=== PATIENT | male | born 1970 | race African-American/Black ===

== ENCOUNTER → 2016-11-10 | Outpatient (CLI) | payer OTHER ==
[~2016-11-10] MED LIST: ARMO1TAB PO; ASCO25TA PO; TYLE325T5 PO
--- NOTE | 2016-11-10 14:43 | REP ---
CT Head without contrast HISTORY: Headache COMPARISON: None There is no intraparenchymal hemorrhage, acute infarct, mass or midline shift. The ventricular system is normal in appearance. There is no extra cerebral collection. There is no fracture. The visualized sinuses are clear. IMPRESSION: There is no intracranial lesion. Signed by Paddy Sandoval MD 11/10/2016 01:34 P
== END ==
LOC: M RAD 13:19
PROVIDERS: ATTEND Psychiatry & Neurology Neurology
DX: R51 Headache (principal)

== ENCOUNTER → 2016-12-08 | Outpatient (CLI) | payer OTHER ==
--- NOTE | 2016-12-08 10:20 | REP ---
Right upper quadrant sonography: History: Fatty liver. Findings: Scanning through the right upper quadrant of the abdomen demonstrates a normal sized thin-walled gallbladder without evidence of stone or polyp. Common bile duct is normal measuring 0.5 cm. The liver is enlarged measuring 21.4 cm in craniocaudal length in the midclavicular line. There is increased echogenicity and decreased insonation consistent with diffuse fatty infiltration of the liver. A 1.1 x 1.3 x 1.3 cm hypoechoic area is seen in the right lobe which could be an area of fat sparing versus a focal mass lesion. This is most likely an area of fat sparing. Limited views of the pancreas show no abnormality. Pancreatic tail is obscured by abdominal gas. There is no evidence of ascites. Right kidney is unremarkable with dimensions of 13.1 x 5.1 x 6.7 cm. Impression: 1. Hepatomegaly. Fatty infiltration of the liver. A 1.3 cm hypoechoic area likely an area of fat sparing. Consider follow-up. 2. Otherwise negative right upper quadrant sonography. Signed by Ten Alex MD 12/08/2016 12:31 P
== END ==
LOC: M RAD 08:49
PROVIDERS: ATTEND Nurse Practitioner Family
DX: K76.0 Fatty (change of) liver, not elsewhere classified (principal)

== ENCOUNTER → 2016-12-14 | Outpatient (REF) | payer OTHER | LOC: M SMT 17:31 | PROVIDERS: ATTEND Urology | DX: R35.0 Frequency of micturition (principal) | CPT/HCPCS: 87086; G0463 ==